=== PATIENT | female | born 1955 | race Caucasian/White ===

== ENCOUNTER 2018-01-28 01:47 | Outpatient (CLI) | payer MEDICARE, OTHER | END 2018-01-28 23:59 | disposition home or self-care (01) | LOC: DIABETIC 01:47 | PROVIDERS: ATTEND Specialist | DX: E11.65 Type 2 diabetes mellitus with hyperglycemia (principal) | CPT/HCPCS: G0108 ==

== ENCOUNTER 2018-05-27 00:42 | Outpatient (CLI) | payer MEDICARE, OTHER | END 2018-05-27 23:59 | disposition home or self-care (01) | LOC: DIABETIC 00:42 | PROVIDERS: ATTEND Specialist | DX: E11.65 Type 2 diabetes mellitus with hyperglycemia (principal); Z91.040 Latex allergy status; Z79.899 Other long term (current) drug therapy | CPT/HCPCS: G0108 ==

== ENCOUNTER 2019-08-04 05:02 | Day surgery (SDC) | payer MEDICARE, BC ==
[2019-07-30 12:18] LABS: ALBUMIN 3.7 G/DL (3.4-5.0); ANION GAP 7 (8-16); BASOPHILS % (AUTO) 0.8 % (0-1); BLOOD UREA NITROGEN 19 MG/DL (7-18); BUN/CREATININE RATIO 17.1 (6.6-38.0); CALCIUM 9.3 MG/DL (8.5-10.1); CHLORIDE 106 MMOL/L (99-107); CREATININE 1.11 MG/DL (0.40-0.90); EOSINOPHILS # (AUTO) 0.2 X10'3 (0-0.9); EOSINOPHILS % (AUTO) 4.1 % (0-6); GLUCOSE 148 MG/DL (70-104); HEMATOCRIT 39.8 % (35.0-45.0); HEMOGLOBIN 13.4 g/dl (12.0-16.0); LYMPHOCYTES # (AUTO) 1.1 X10'3 (1.1-4.8); LYMPHOCYTES % (AUTO) 19.9 % (21-51); MEAN CORPUSCULAR HEMOGLOBIN 33.3 PG (27.0-31.0); MEAN CORPUSCULAR HGB CONC 33.8 g/dL (33.0-36.5); MEAN CORPUSCULAR VOLUME 98.5 FL (78-98); MEAN PLATELET VOLUME 9.2 FL (7.4-10.4); MONOCYTES # (AUTO) 0.6 X10'3 (0-0.9); MONOCYTES % (AUTO) 10.6 % (2-12); NEUTROPHILS # (AUTO) 3.7 X10'3 (1.8-7.7); NEUTROPHILS % (AUTO) 64.6 % (42-75); PLATELET COUNT 180 X10'3 (140-440); POTASSIUM 4.1 MMOL/L (3.5-5.1); RED BLOOD COUNT 4.03 X10'6 (4.20-5.60); RED CELL DISTRIBUTION WIDTH 13.5 % (11.5-14.5); SODIUM 142 MMOL/L (135-145); TOTAL CARBON DIOXIDE 29.2 MMOL/L (24-32); WHITE BLOOD COUNT 5.7 X10'3 (4.5-11.0); eGFR 49 ML/MIN
[2019-07-30 12:22] LABS: PARTIAL THROMBOPLASTIN TIME 23 SECONDS (22-32)
[~2019-08-04] VITALS: Ht 162.6 cm; Wt 113.0 kg
[2019-08-04] VITALS (9 sets, daily range): BP systolic 114–149; BP diastolic 49–59
[2019-08-04] MEDS ORDERED: diphenhydrAMINE 25mg capsule PO PRN (05:25)
[2019-08-04] MEDS ORDERED: LORazepam 0.5 MG tablet PO PRN (05:25)
[2019-08-04] MEDS ORDERED: LIDOcaine/PRILOcaine 5gm cream TP ONE (05:25)
[2019-08-04] MEDS ORDERED: normal saline 1,000 ML IV SCH (05:25)
[2019-08-04] MEDS ORDERED: midazolam 2 mg/2 ml injection ONE (06:04)
[2019-08-04] MEDS ORDERED: iohexol 350MG/ML 100ml bottle IV ONE (06:04)
[2019-08-04] MEDS ORDERED: LIDOcaine 1% (10mg/ml)w/preservative injection 20ml MDV ONE (06:04)
[2019-08-04] MEDS ORDERED: heparin 1,000unit/ml 10ml vial 10 ML ONE (06:04)
[2019-08-04] MEDS ORDERED: nitroGLYCERIN-Tridil 50MG/D5W 250 ML IV ONE (06:04)
[2019-08-04] MEDS ORDERED: verapamil 2.5 mg/ml inj IV ONE (06:04)
[2019-08-04] MEDS ORDERED: fentaNYL/PF 50MCG/1 ML 2ML syringe ONE (06:04)
[2019-08-04] MEDS ORDERED: ATOR20TA PO (06:14)
[2019-08-04] MEDS ORDERED: CITA20TA28 PO (06:14)
[2019-08-04] MEDS ORDERED: THIA50TA10 PO (06:14)
[2019-08-04] MEDS ORDERED: [UNRECOGNIZED DRUG - OTHER] PO (06:14)
[2019-08-04] MEDS ORDERED: LOSA25TA96 PO (06:14)
[2019-08-04] MEDS ORDERED: CHOL200059 PO (06:14)
[2019-08-04] MEDS ORDERED: ASPI-1264 PO (06:14)
[2019-08-04] MEDS ORDERED: IBUP100T52 PO (06:14)
[2019-08-04] MEDS ORDERED: METF500T PO (06:14)
[2019-08-04] MEDS ORDERED: LEVO150T PO (06:14)
[2019-08-04] MEDS ORDERED: acetaminophen 325mg tablet PO PRN (07:25)
[2019-08-04] MEDS ORDERED: proCHLORperazine 10 MG/2 ml inj IV PRN (07:25)
[2019-08-04] MEDS ORDERED: HYDROcodone/acetaminophen 10/325mg tab PO PRN (07:25)
[2019-08-04] MEDS ORDERED: OXAZEpam 15mg capsule PO PRN (07:25)
[2019-08-04] MEDS ORDERED: ondansetron/PF 4mg/2ml inj IV PRN (07:25)
[2019-08-04] MEDS ORDERED: HYDROcodone/acetaminophen 5mg/325mg tablet PO PRN (07:25)
--- NOTE | 2019-08-04 08:45 | NUR ---
pt ambulated to bathroom, vs stable as charted. pt site stable.
== END 2019-08-04 11:10 | disposition home or self-care (01) ==
LOC: SSTAY O 05:02
PROVIDERS: ATTEND Internal Medicine Interventional Cardiology
DX: R07.9 Chest pain, unspecified (principal); R94.39 Abnormal result of other cardiovascular function study; I25.10 Atherosclerotic heart disease of native coronary artery without angina pectoris; I10 Essential (primary) hypertension; E11.9 Type 2 diabetes mellitus without complications; E78.5 Hyperlipidemia, unspecified; E03.9 Hypothyroidism, unspecified; E66.9 Obesity, unspecified; Z68.41 Body mass index [BMI] 40.0-44.9, adult; Z79.899 Other long term (current) drug therapy; Z79.82 Long term (current) use of aspirin; Z79.84 Long term (current) use of oral hypoglycemic drugs; Z87.01 Personal history of pneumonia (recurrent); Z88.8 Allergy status to other drugs, medicaments and biological substances; Z91.040 Latex allergy status
CPT/HCPCS: 36415; 80048; 82948; 85025; 85610; 85730; 93458; 99152; C1769; C1894; J1644; J2001; J2250; J3010; J7030; Q0163; Q9967; 93005; A4620; A6258; J3490